=== PATIENT | male | born 1955 | race Caucasian/White ===

== ENCOUNTER 2018-07-28 19:23 | Emergency (ER) | payer OTHER ==
[~2018-07-28] VITALS: Ht 177.8 cm; Wt 99.8 kg
[2018-07-28] MEDS ORDERED: CITALOPRAM HBR10 MG PO (19:40)
[2018-07-28] MEDS ORDERED: HYDROXYZINE HCL10 MG PO (19:40)
[2018-07-28] MEDS ORDERED: ELIQUIS5 MG PO (19:40)
== END 2018-07-28 21:25 | disposition home or self-care (01) ==
LOC: ED 19:23
DX: M25.551 Pain in right hip (principal); Z79.899 Other long term (current) drug therapy
CPT/HCPCS: 73502; 99283